=== PATIENT | female | born 1985 | race Caucasian/White ===

== ENCOUNTER 2018-11-11 15:42 | Emergency (ER) | payer SELFPAY ==
[~2018-11-11] VITALS: Ht 172.7 cm; Wt 97.0 kg
[2018-11-11 16:01] LABS: BASOPHILS # (AUTO) 0.05 x10^3/uL (0-0.1); BASOPHILS % (AUTO) 1 % (0-1); EOSINOPHILS # (AUTO) 0.05 x10^3/uL (0-0.4); EOSINOPHILS % (AUTO) 1 % (1-7); LYMPHOCYTES # (AUTO) 2.15 x10^3/uL (1-3.4); LYMPHOCYTES % (AUTO) 33 % (22-44); MD NO; MEAN CORPUSCULAR HEMOGLOBIN 26.4 pg (27.0-34.8); MEAN CORPUSCULAR HGB CONC 32.2 g/dL (32.4-35.8); MEAN CORPUSCULAR VOLUME 81.8 fL (80-100); MEAN PLATELET VOLUME 7.4 fL (7.4-10.4); MONOCYTES # (AUTO) 0.51 x10^3/uL (0.2-0.8); MONOCYTES % (AUTO) 8 % (2-9); NEUTROPHILS % (AUTO) 58 % (42-75); PLATELET COUNT 194 x10^3/uL (130-400); RED BLOOD COUNT 4.68 x10^6/uL (3.82-5.3); RED CELL DISTRIBUTION WIDTH 14.4 % (9.6-15.2)
[2018-11-11 16:14] LABS: ALBUMIN 3.4 g/dL (3.4-5.0); ANION GAP 7 mmol/L (5-15); CALCIUM 8.8 mg/dL (8.5-10.1); CHLORIDE 109 mmol/L (98-107)
[2018-11-11 16:18] LABS: ALANINE AMINOTRANSFERASE 17 U/L (12-78); ALKALINE PHOSPHATASE 100 U/L (45-117); BILIRUBIN,TOTAL 0.3 mg/dL (0.2-1.0); CREATININE 0.96 mg/dL (0.55-1.02); TOTAL PROTEIN 8.1 g/dL (6.4-8.2)
[2018-11-11 16:20] LABS: SALICYLATE LEVEL < 1.7 mg/dL (2.8-20.0)
[2018-11-11] MEDS ORDERED: LORazepam 2 MG/ML, 1ML ONE (16:36)
--- NOTE | 2018-11-11 16:38 | NUR ---
PT BECOMING SLIGHTLY VERBAL SHE REPORTS HAS HX SEIZURES AND LIVER DISEASE HAS NOT TAKEN HER MEDS FOR SIX DAYS AND HAS TAKEN METH PT COOPERATIVE
[2018-11-11 16:44] LABS: MICROSCOPIC NOT IND
[2018-11-11 16:45] LABS: CULTURE INDICATED? NO
[2018-11-11 16:57] LABS: AMPHETAMINE SCREEN, URINE Positive (Negative); BARBITURATE SCREEN, URINE Negative (Negative); BENZODIAZEPINE SCREEN, URINE Negative (Negative); CANNABINOID SCREEN, URINE Negative (Negative); COCAINE SCREEN, URINE Negative (Negative); METHADONE SCREEN, URINE Negative (Negative); OPIATE SCREEN, URINE Negative (Negative)
[2018-11-11] MEDS ORDERED: LEVETIRACETAM 1,000 MG in SODIUM CHLORIDE 0.9% 100 ML IV ONE (17:00)
[2018-11-11] MEDS ORDERED: LORazepam 2 MG/ML, 1ML IVPush ONE (17:00)
--- NOTE | 2018-11-11 17:07 | NUR ---
PT ON PHONE TO FAMILY REMAINS SLIGHTLY SLEEPY VSS
--- NOTE | 2018-11-11 17:24 | NUR ---
REPORT FROM HU RUIZ, ASSUMED CARE OF PT AT THIS TIME. PT RESTING IN [place] ON MONITOR, VSS, PT AOX4. NO NEEDS AT THIS TIME, CALL LIGHT WITHIN REACH
--- NOTE | 2018-11-11 18:22 | NUR ---
PT SLEEPING IN [facility], REQUESTED TO BE ADMITTED FOR HER "LIVER", STATED SHE LEFT AMA FROM HOSPITAL IN [place]. MD NOTIFIED, PER MD LIVER FUNCTION FINE AT THIS TIME AND NO EVIDENCE OF LIVER DISEASE TO TREAT. PT ENCOURAGED TO FU WITH PRIMARY CARE.
--- NOTE | 2018-11-11 18:49 | NUR ---
PT SLEEPING IN GURNEY, ON MONITOR. TAKES SIGNIFIGANT EFFORT TO AROUSE BUT AROUSES TO AOX4. SPO2 95% ON RA. PT REQUESTED AND GIVEN PHONE PT REQUESTED FOOD. CALL LIGHT WITHIN REACH, PT IN VIEW OF DESK. DIET TRAY ORDERED, OK PER .
--- NOTE | 2018-11-11 19:00 | NUR ---
REPORT RECIEVED FROM JOSEPH BUCKLEY
--- NOTE | 2018-11-11 19:12 | NUR ---
PT WAKE UP TO TOUCH AND CALLING HER NAME. PT KNOWS SHE IS AT A HOSPITAL, BUT DOESNT KNOW WHAT CITY SHE IS IN, WHAT MONTH IT IS, PT UNABLE TO VERBALIZE HER OWN NAME.
--- NOTE | 2018-11-11 21:18 | NUR ---
PT AWAKENS TO HER NAME. PT IS BECOMING MORE ALERT AND WAS ABLE TO TELL THIS RN HER FULL NAME AND DATE OF . PT STATES HER BABY JON LIVES IN [place], HIS NAME IS WHIT AND HE DOES NOT HAVE A PHONE TO BE CONTACTED ON. PT STATES SHE IS FROM [place] AND IS CURRENTLY STAYING AT A [facility] IN [place].
--- NOTE | 2018-11-11 21:20 | NUR ---
DAY SHIFT RN INA STATED IN REPORT TO THIS RN THAT SHE GAVE PERSCRIBED KEPPRA IN IV. IV KEPPRA WAS STILL ATTACHED TO PT AT TIME OF SHIFT CHANGE, KEPPRA WAS NOT SCANNED INTO THE EMAR GIVEN.
[2018-11-11 22:24] VITALS: BP 106/63
--- NOTE | 2018-11-11 22:24 | NUR ---
PT BECOMING MORE ALERT AND IS NOW ABLE TO RECALL THE CURRENT CITY, [place]. STOOD PT UP AT THE BEDSIDE AND PT WAS VERY UNSTEADY IN A STANDING POSITION AND PT MADE C/O DIZZINESS. PT HELPED BACK INTO BED AND WAS DEAMED BY THIS NURSE TO BE UNSAFE TO AMBULATE AT THIS TIME.
== END 2018-11-11 23:24 ==
LOC: ED 20:25
DX: G40.509 Epileptic seizures related to external causes, not intractable, without status epilepticus (principal); F15.10 Other stimulant abuse, uncomplicated
CPT/HCPCS: 36415; 80053; 80307; 81003; 84443; 84703; 85025; 93005; 96374; 99284; J2060